=== PATIENT | male | born 1945 | race Two or more races ===

== ENCOUNTER 2019-05-25 08:15 | Inpatient (IN) | payer OTHER ==
[~2019-05-25] VITALS: Ht 167.6 cm; Wt 89.4 kg
[2019-05-25] MEDS ORDERED: METFORMIN HCL500 M3 PO (10:53)
[2019-05-25] MEDS ORDERED: HORIZANT300 MG PO (10:54)
[2019-05-25] MEDS ORDERED: LIPITOR40 MG PO (10:54)
[2019-05-25] MEDS ORDERED: NORVASC5 MG PO (10:55)
[2019-06-02] MEDS ORDERED: TAMSULOSIN HCL0.4 MG PO (10:06)
[2019-06-02] MEDS ORDERED: INTESTINEX680 M1 PO (10:07)
[2019-06-02] MEDS ORDERED: OXYC1TAB9 PO (10:07)
== END 2019-06-02 16:28 | disposition home or self-care (01) | DRG 331 ==
LOC: O/R 08:15 → SURH 05-30 08:06 → O/R 05-30 08:06 → SURH 05-30 14:40
PROVIDERS: ADMIT Surgery
PROC: 07TB4ZZ Resection of Mesenteric Lymphatic, Percutaneous Endoscopic Approach (ICD-10-PCS; 2019-05-30)
PROC: 0DTF4ZZ Resection of Right Large Intestine, Percutaneous Endoscopic Approach (ICD-10-PCS; principal; 2019-05-30 14:30)
DX: C18.0 Malignant neoplasm of cecum (principal); R59.0 Localized enlarged lymph nodes

== ENCOUNTER 2019-06-03 16:52 | Emergency (ER) | payer OTHER ==
[~2019-06-03] VITALS: Ht 167.6 cm; Wt 86.2 kg
[~2019-06-03 16:52] MED LIST: HORIZANT300 MG PO; INTESTINEX680 M1 PO; LIPITOR40 MG PO; METFORMIN HCL500 M3 PO; NORVASC5 MG PO; OXYC1TAB9 PO; TAMSULOSIN HCL0.4 MG PO
== END 2019-06-03 18:29 | disposition home or self-care (01) ==
LOC: ER 16:52
DX: R33.8 Other retention of urine (principal); Z98.890 Other specified postprocedural states

== ENCOUNTER 2019-06-11 07:10 | Emergency (ER) | payer OTHER ==
[~2019-06-11] VITALS: Ht 167.6 cm; Wt 83.9 kg
== END 2019-06-11 09:21 | disposition home or self-care (01) ==
LOC: ER 07:10
DX: Z46.6 Encounter for fitting and adjustment of urinary device (principal)

== ENCOUNTER 2020-07-24 05:50 | Day surgery (SDC) | payer OTHER | END 2020-07-24 12:45 | disposition home or self-care (01) | LOC: AMB-ENDOS 05:50 | PROVIDERS: ATTEND Surgery | DX: K62.89 Other specified diseases of anus and rectum (principal); K64.8 Other hemorrhoids; Z20.828 Contact with and (suspected) exposure to other viral communicable diseases ==